=== PATIENT | female | born 1985 | race Caucasian/White ===

== ENCOUNTER 2016-10-09 11:01 | Emergency (ER) | payer OTHER ==
[~2016-10-09] VITALS: Ht 165.1 cm; Wt 63.0 kg
[~2016-10-09 11:01] MED LIST: WARF-18 PO
[2016-10-09 11:13] VITALS: BP 107/77
[2016-10-09] MEDS: diphenhydrAMINE 50 MG/ML VIAL IM ONE (14:14)
[2016-10-09] MEDS: HYDROmorphone 1 MG/ML AMP IM ONE (14:16)
[2016-10-09] MEDS: ONDANSETRON 4 MG ODT PO ONE (14:56)
[2016-10-09] MEDS: diphenhydrAMINE 50 MG/ML VIAL IVP ONE (16:13)
[2016-10-09] MEDS: HYDROmorphone 1 MG/ML AMP IVP ONE (16:14)
[2016-10-09 16:42] VITALS: BP 103/71
== END 2016-10-09 16:42 | disposition home or self-care (01) ==
LOC: MED 11:01
DX: S80.12XA Contusion of left lower leg, initial encounter (principal); M79.89 Other specified soft tissue disorders; R58 Hemorrhage, not elsewhere classified; J45.909 Unspecified asthma, uncomplicated; Z88.5 Allergy status to narcotic agent; Z88.6 Allergy status to analgesic agent; Z91.018 Allergy to other foods; Z86.718 Personal history of other venous thrombosis and embolism; W01.0XXA Fall on same level from slipping, tripping and stumbling without subsequent striking against object, initial encounter; Y93.89 Activity, other specified; Y92.89 Other specified places as the place of occurrence of the external cause; Y99.8 Other external cause status
CPT/HCPCS: 73590; 73630; 93971; 96372; 96374; 96375; 99284; J1170; J1200; Q0092; S0119

== ENCOUNTER 2018-06-09 16:59 | Inpatient (IN) | payer OTHER ==
[~2018-06-09] VITALS: Ht 170.2 cm; Wt 55.4 kg
[2018-06-09 17:21] VITALS: BP 114/45
--- NOTE | 2018-06-09 17:27 | NUR ---
Patient being evaluated by physician at bedside.
--- NOTE | 2018-06-09 17:30 | NUR ---
32 YO F BIB SELF W/ C/O GENERALIZED WEAKNESS, NAUSEA SINCE 299. PT REPORTS SEVERE EDEMA LEFT LEG, HAS HX 5 DVTS AND STATES THE ERYTHEMA/EDEMA/PAIN FEELS THE SAME THOSE EPISODES. PT CURRENTLY TAKES WARFARIN. PAIN 02/08. AMBULATORY W/ STEAFY GAIT. POSITIVE HOLMANS SIGN. DENIES SOB/CP AT THIS TIME. HX 5X DVT RX WARFARIN
--- NOTE | 2018-06-09 17:41 | NUR ---
lab at bedside
[2018-06-09] MEDS ORDERED: fentaNYL 0.05 MG/ML VIAL IVP ONE (17:45)
[2018-06-09] MEDS ORDERED: ONDANSETRON 4 MG/2 ML VIAL IVP ONE ×3 (17:45→21:55)
--- NOTE | 2018-06-09 18:02 | NUR ---
ultrasound at bedside
[2018-06-09 18:07] LABS: BASOPHILS # (AUTO) 0.1 K/uL (0.00-0.22); BASOPHILS % (AUTO) 2.1 % (0.0-2.0); EOSINOPHILS # (AUTO) 0.2 K/uL (0-0.4); EOSINOPHILS % (AUTO) 3.7 % (0.0-4.0); HEMATOCRIT 31.2 % (36-48); HEMOGLOBIN 9.2 g/dL (12.0-16.0); LYMPHOCYTES # (AUTO) 1.6 K/uL (2.5-16.5); LYMPHOCYTES % (AUTO) 31.1 % (20.5-51.1); MEAN CORPUSCULAR HEMOGLOBIN 21 pg (27-31); MEAN CORPUSCULAR HGB CONC 29 g/dL (33-37); MEAN CORPUSCULAR VOLUME 70.2 fL (80-94); MONOCYTES # (AUTO) 0.3 K/uL (0.8-1.0); MONOCYTES % (AUTO) 5.8 % (1.7-9.3); NEUTROPHILS # (AUTO) 2.9 K/uL (1.8-7.7); NEUTROPHILS % (AUTO) 57.3 % (42.2-75.2); PLATELET COUNT (AUTO) 231 K/uL (140-450); RED BLOOD CELL COUNT(AUTO) 4.44 MIL/uL (4.20-5.40)
[2018-06-09 18:21] LABS: PROTHROMBIN TIME 10.1 secs (10.8-13.4)
[2018-06-09 18:33] LABS: ANION GAP 11.1 (8-16); CARBON DIOXIDE 27.2 mmol/L (21-32); POTASSIUM 3.3 mmol/L (3.5-5.1)
[2018-06-09 18:35] LABS: ALBUMIN 3.7 g/dL (3.4-5.0); CREATININE 0.8 mg/dL (0.6-1.3); TOTAL BILIRUBIN 0.2 mg/dL (0.0-1.0)
--- NOTE | 2018-06-09 18:53 | NUR ---
PT IS A HARD STICK, NOT ABLE TO GET AN IV ON PT, ER MD AWARE AND NOTIFIED
--- NOTE | 2018-06-09 19:20 | NUR ---
RECEIVED REPORT FROM AM NURSE. PT LAYING IN BED, RR EVEN AND UNLABORED. VSS. PT C/O 10/10 LOWER ABD PAIN AND L LEG PAIN. PREVIOUS RN UNABLE TO START IV, PT AGREED TO HAVE DATA MINING ANALYST PM ATTEMPT.
[2018-06-09] MEDS ORDERED: NACL 0.9% 1,000 ML IV ONE (20:15)
--- NOTE | 2018-06-09 20:15 | NUR ---
Pt report given to AMY BOSCH. Transfer of care at this time.
[2018-06-09] MEDS ORDERED: diphenhydrAMINE 50 MG/ML VIAL IVP ONE ×2 (20:40→21:25)
[2018-06-09] MEDS ORDERED: HYDROmorphone PFS 2 MG/ML SYR IVP ONE (20:40)
[2018-06-09 21:03] LABS: APPEARANCE,URINE SLIGHTLY CLOUDY (CLEAR); COLOR,URINE YELLOW (YELLOW)
[2018-06-09 21:04] LABS: BILIRUBIN,URINE NEGATIVE (NEGATIVE); BLOOD, URINE 3+ (NEGATIVE); LEUKOCYTE ESTERASE ,URINE NEGATIVE (NEGATIVE); NITRITE, URINE NEGATIVE (NEGATIVE); UGLUCOSE NEGATIVE (NEGATIVE)
--- NOTE | 2018-06-09 21:04 | NUR ---
PT TO RADIOLOGY VIA [facility] BY [facility].
[2018-06-09 21:16] LABS: RBC,URINE TOO NUMEROUS TO COUN /HPF (0-5); WBC,URINE 0-5 (RARE) /HPF (0-5)
--- NOTE | 2018-06-09 22:44 | NUR ---
PT IN 03/10 ABD PAIN. ER MD MADE AWARE. WILL CONTINUE TO MONITOR.
[2018-06-09] MEDS ORDERED: KETAMINE 500 MG/5 ML VIAL IVP ONE (22:45)
[2018-06-09] MEDS ORDERED: KETAMINE 10 MG/ML UD SYR **ER IVP ONE (22:55)
[2018-06-09 22:59] LABS: FREE T4 (FREE THYROXINE) 1.06 ng/dL (0.76-1.46); THYROID STIMULATING HORMONE 0.83 uIU/mL (0.34-3.74)
[2018-06-09 23:52] LABS: BARBITURATE, URINE NEGATIVE ng/ml (NEG <=200); BENZODIAZEPINE, URINE NEGATIVE ng/mL (NEG <=200); CANNABINOID, URINE NEGATIVE ng/mL (NEG <=50); COCAINE, URINE NEGATIVE ng/mL (NEG <=300); OPIATE, URINE NEGATIVE ng/mL (NEG <=2000); PHENCYCLIDINE SCREEN,URINE NEGATIVE ng/mL (NEG <=25)
--- NOTE | 2018-06-09 23:59 | NUR ---
PT STATES THAT SHE FEELING BURNING IN HER PELVIS AND HIP AREA. ER MD MADE AWARE. WILL CONTINUE TO MONITOR.
[2018-06-10] MEDS: NACL 0.9% 1,000 ML IV SCH ×2 (00:14→10:24)
[2018-06-10] MEDS ORDERED: ZOLPIDEM 5 MG TAB PO PRN (00:15)
[2018-06-10] MEDS ORDERED: DOCUSATE SODIUM 100 MG GELCAP PO PRN (00:15)
[2018-06-10] MEDS ORDERED: MORPHINE SULFATE 4 MG/ML SYR IVP PRN (00:15)
[2018-06-10] MEDS ORDERED: ACETAMINOPHEN 325 MG TAB PO PRN (00:15)
[2018-06-10] MEDS ORDERED: LORazepam 2 MG/ML VIAL IM/IVP PRN (00:15)
[2018-06-10] MEDS ORDERED: ONDANSETRON 4 MG/2 ML VIAL IM/IVP PRN (00:15)
[2018-06-10] MEDS ORDERED: HYDROcodone/APAP 5/325 MG 1 TAB TAB PO PRN ×2 (00:15→11:40)
[2018-06-10] MEDS ORDERED: HYDROmorphone 1 MG/ML AMP IVP PRN (00:40)
--- NOTE | 2018-06-10 00:45 | NUR ---
US AT BEDSIDE.
--- NOTE | 2018-06-10 00:58 | NUR ---
Pt transferred to Med/Surg via 104A WITH AMY BOSCH .
[2018-06-10 01:05] VITALS: BP 104/65
--- NOTE | 2018-06-10 01:05 | NUR ---
Patient will be admitted to care of Dr. Steve. Admited to [facility]. Will go to room 104A. Belongings list completed. Report to Stephanie REYES.
--- NOTE | 2018-06-10 01:15 | NUR ---
PT BROUGHT UP TO FLOOR VIA GURNEY AND WAS TRANSFERRED TO ROOM 104A. PT ESCORTED BY VARINDER REYES HOT BLASTER ER NURSE. VARINDER GAVE REPORT AT BEDSIDE. PT A0X4 IN SABLE CONDITION AT THIS TIME. PT SKIN IN TAC. SHE HAS 2 IV SITES BOTH ON RIGHT SIDE 24G ON RIGHT WRIST AND 20G ON LAC. PT V/S FOLLOWS T 97.6 P 78 R 18 B/P 104/65 02 100% ON R/A. PT HAS NS RUNNING AT 100 VIA PUMP. PT C/O OF SEVERE PAIN AND NAUSEA. WILL MEDICATE PT PRN.
--- NOTE | 2018-06-10 01:54 | NUR ---
PT RECEIVED IVP ZOFRAN FOR NAUSEA AND DILAUDID IVP FOR SEVERE PAIN. DR. PARKINSON ADMITTING MD AT BEDSIDE INTERVIEWING AND EXAMINING PT AT BEDSIDE. PT REQUESTED A 4HR PRN TIME FRAME INSTEAD OF A 6HR. PRN IVP DILAUDID. DR. PARKINSON SAID OK. PT ALSO REQUEST BENADRYL FOR ITCHINESS DUE TO HER CONCERN FOR A MEDICATION REACTION. PT OFFERED AN AMBIEN TO HELP HER SLEEP BUT SHE DECLINED.
--- NOTE | 2018-06-10 02:15 | NUR ---
PT REQUEST [employer] DR. PARKINSON AWARE AND HAS GRANTED HER REQUEST.
[2018-06-10] MEDS ORDERED: diphenhydrAMINE 50 MG/ML VIAL IVP PRN (02:25)
[2018-06-10] MEDS ORDERED: POTASSIUM CHLORIDE 10 MEQ TABER PO SCH (02:45)
--- NOTE | 2018-06-10 03:04 | NUR ---
PT REQUEST BENADRYL FOR ITCHINESS. GIVEN ORDERED.
--- NOTE | 2018-06-10 05:30 | NUR ---
PT GIVEN 40 MEQ OF K-DUR FOR LOW POTASSIUM
[2018-06-10] MEDS: HYDROmorphone 1 MG/ML AMP IVP PRN ×2 (06:01→10:17)
--- NOTE | 2018-06-10 06:05 | NUR ---
PT C/O SEVERE PAIN AND GIVEN DILAUDID IVP ORDERD FOR SEVERE PAIN WILL MONITOR EFFECT.
[2018-06-10 06:17] LABS: BASOPHILS # (AUTO) 0.1 K/uL (0.00-0.22); BASOPHILS % (AUTO) 1.2 % (0.0-2.0); EOSINOPHILS # (AUTO) 0.1 K/uL (0-0.4); EOSINOPHILS % (AUTO) 1.1 % (0.0-4.0); HEMATOCRIT 27.7 % (36-48); HEMOGLOBIN 8.2 g/dL (12.0-16.0); LYMPHOCYTES # (AUTO) 1.7 K/uL (2.5-16.5); LYMPHOCYTES % (AUTO) 24.4 % (20.5-51.1); MEAN CORPUSCULAR HEMOGLOBIN 21 pg (27-31); MEAN CORPUSCULAR HGB CONC 30 g/dL (33-37); MEAN CORPUSCULAR VOLUME 70.3 fL (80-94); MONOCYTES # (AUTO) 0.3 K/uL (0.8-1.0); MONOCYTES % (AUTO) 4.7 % (1.7-9.3); NEUTROPHILS # (AUTO) 4.8 K/uL (1.8-7.7); NEUTROPHILS % (AUTO) 68.6 % (42.2-75.2); PLATELET COUNT (AUTO) 237 K/uL (140-450); RED BLOOD CELL COUNT(AUTO) 3.94 MIL/uL (4.20-5.40); RED CELL DISTRIBUTION WIDTH 21.9 % (11.6-13.7); WHITE BLOOD COUNT (AUTO) 6.9 K/uL (4.8-10.8)
--- NOTE | 2018-06-10 06:45 | NUR ---
PT SAYS SHE FEELS BETTER.
--- NOTE | 2018-06-10 07:27 | NUR ---
REPORT GIVEN TO ROSE MARIE REYES DAYSHIFT NURSE AT BEDSIDE FOR CONTINUITY OF CARE, PT IN STABLE CONDITION.
[2018-06-10] MEDS ORDERED: LACTULOSE 20 GM/30 ML UDC PO SCH (07:30)
[2018-06-10] MEDS: BISACODYL 10 MG SUPP RC SCH ×2 (07:30→08:41)
--- NOTE | 2018-06-10 07:30 | NUR ---
PATIENT WAS AWAKE, ALERT. RESPIRATION EVEN, UNLABOR ON ROOM AIR. SKIN DRY AND WARM. IV PATENT AND INTACT. COMPLAINED OF ABDOMINAL PAIN 7/10, SHARP, RADIATING TO THE BACK, WILL MEDICATE PER ORDER. PLAN OF CARE WAS DISCUSSED WITH PATIENT. BED AT LOW POSITION, SIDE RAILS UP. CALL LIGHT WITHIN REACH
[2018-06-10 08:00] VITALS: BP 98/51
--- NOTE | 2018-06-10 08:25 | NUR ---
PATIENT HAS BEEN SCREENED AND CATEGORIZED MODERATE NUTRITION RISK. PATIENT WILL BE SEEN WITHIN 3-5 DAYS OF ADMISSION. 06/12/18 06/14/[address]
[2018-06-10] MEDS ORDERED: POLYETHYLENE GLYCOL 17 GM/PKT PO SCH (09:00)
--- NOTE | 2018-06-10 10:20 | NUR ---
PATIENT WAS AWAKE, ALERT. RESPIRATION EVEN, UNLABOR ON ROOM AIR. COMPLAINED OF ABDOMINAL PAIN. MED WAS GIVEN PER ORDER
[2018-06-10] MEDS ORDERED: KETOROLAC 15 MG/ML VIAL IM PRN (11:40)
--- NOTE | 2018-06-10 12:00 | NUR ---
PATIENT WAS AWAKE, ALERT, SITTING IN BED COMFORTABLY. RESPIRATION EVEN, UNLABOR ON ROOM AIR. NO DISTRESS NOTED AT THIS TIME
[2018-06-10 12:55] LABS: ANION GAP 9.9 (8-16); CREATININE 0.7 mg/dL (0.6-1.3); POTASSIUM 3.9 mmol/L (3.5-5.1)
--- NOTE | 2018-06-10 13:40 | NUR ---
PATIENT COMPLAINED OF ABDOMINAL PAIN. EXPLAINED TO THE PATIENT DILAUDID WAS DISCONTINUED PER MD. OFFERED PATIENT NORCO AND TORADOL. PATIENT STATED SHE CANNOT TAKE ANYTHING PO, AND SHE IS ALLERGIC TO TORADOL. DR. MENDIETA WAS MADE AWARE.
--- NOTE | 2018-06-10 13:40 | NUR ---
CT ABDOMEN WITH CONTRAST WAS OBTAINED AT BEDSIDE, SIGNED BY PATIENT
--- NOTE | 2018-06-10 13:55 | NUR ---
PATIENT WAS EXPLAINED THAT SHE HAS CONSTIPATION PER MD AND NEED SUPPOSITORY. PATIENT REFUSED SUPPOSITORY, STATED THAT SHE DOES NOT HAVE CONSTIPATION, AND WOULD LIKE TO SPEAK TO "PATIENT RELATION". DR MENDIETA AND CHARGE NURSE NIKKO WAS MADE AWARE
[2018-06-10] MEDS ORDERED: SODIUM FERRIC GLUCONATE 125 MG in NACL 0.9% 100 ML IV SCH (14:00)
--- NOTE | 2018-06-10 15:00 | NUR ---
ENDORSEMENT GIVEN TO AMANDA REYES FOR CONTINUITY OF CARE. PATIENT IS STABLE AT THIS TIME
[2018-06-10 16:30] VITALS: BP 105/72
--- NOTE | 2018-06-10 16:30 | NUR ---
PATIENT WANTED TO LEAVE. DR MENDIETA SPOKE WITH THE PATIENT AND EXPLAINED THAT FURTHER WORK UP IS NEED. PATIENT STATES " I WILL NOT SIT HERE IN PAIN." DR OFFERED OTHER ALTERNATIVES BUT PATIENT REFUSED. IV LINE DISCONTINUED. PATIENT LEFT WITH ALL HER BELONGINGS. PATIENT LEFT WITHOUT SIGNING AMA FORM. PATIENT LEFT IN STABLE CONDITION
[2018-06-10] MEDS ORDERED: WARFARIN 2.5 MG TAB PO SCH (17:00)
[2018-06-10] MEDS ORDERED: FERROUS SULFATE 325 MG TABEC PO SCH (17:00)
[2018-06-10] MEDS ORDERED: ENOXAPARIN 60 MG/0.6 ML SYR SUBQ SCH (21:00)
[2018-06-11] MEDS ORDERED: ASCORBIC ACID 500 MG TAB PO SCH (09:00)
[2018-06-11 12:17] LABS: FOLIC ACID 10.8 ng/mL (>3.0)
== END 2018-06-10 16:30 | disposition left against medical advice (07) | DRG 812 ==
LOC: MED 16:59 → MTU 06-10 00:14
PROVIDERS: ADMIT General Practice; ATTEND General Practice
DX: D50.9 Iron deficiency anemia, unspecified (principal); D68.59 Other primary thrombophilia; R10.11 Right upper quadrant pain; E87.6 Hypokalemia; R31.9 Hematuria, unspecified; E87.8 Other disorders of electrolyte and fluid balance, not elsewhere classified; J45.909 Unspecified asthma, uncomplicated; Z53.21 Procedure and treatment not carried out due to patient leaving prior to being seen by health care provider; Z86.718 Personal history of other venous thrombosis and embolism; Z79.01 Long term (current) use of anticoagulants; Z88.6 Allergy status to analgesic agent; Z88.5 Allergy status to narcotic agent; Z90.49 Acquired absence of other specified parts of digestive tract; Z98.891 History of uterine scar from previous surgery; Z91.013 Allergy to seafood
CPT/HCPCS: 36415; 71045; 71275; 76856; 80048; 80053; 80305; 81001; 82150; 82390; 82607; 82728; 82746; 83036; 83540; 83690; 83735; 83880; 84100; 84439; 84443; 84484; 85025; 85045; 85610; 87081; 87804; 93005; 93971; 96361; 96374; 96375; 99285; J1170; J1200; J2405; J2916; J3010; J7030; Q0092; Q9967

== ENCOUNTER 2019-12-22 01:34 | Emergency (ER) | payer OTHER ==
[~2019-12-22] VITALS: Ht 162.6 cm; Wt 59.4 kg
[~2019-12-22 01:34] MED LIST changes: -WARF-18 PO; +WARF-246 PO
[2019-12-22 01:39] VITALS: BP 99/71
--- NOTE | 2019-12-22 01:43 | NUR ---
PT AMBULATED TO BED #12
--- NOTE | 2019-12-22 01:48 | NUR ---
RECEIVED A 34/F FROM TRIAGE WITH A C/O RIGHT BREAST PAIN INCREASING OVER THE LAST DAY. PT REPORTS THAT BREAST IS WARM TO TOUCH BUT DENIES ANY DISCHARGE OR DRAINAGE. PT ALSO DENIES REDNESS TO SITE. MD AT BEDSIDE FOR MSE AT THIS TIME.
[2019-12-22] MEDS ORDERED: MORPHINE SULFATE 4 MG/ML SYR IVP ONE (01:55)
[2019-12-22] MEDS ORDERED: diphenhydrAMINE 50 MG/ML VIAL IVP ONE ×2 (01:55→02:30)
--- NOTE | 2019-12-22 02:18 | NUR ---
MEDICATED ORDERED. WILL CONTINUE TO ASSESS.
--- NOTE | 2019-12-22 02:25 | NUR ---
PT C/O REDNESS AND IRRITATION AFTER MORPHINE ADMIN. DR AHUMADA AWARE. 25 MG BENEDRYL ORDERED. WILL MEDICATE ORDERED.
--- NOTE | 2019-12-22 02:45 | NUR ---
REDNESS/IRRITATION RELIEVED AFTER 2ND BENEDRYL ADMINISTRATION. PT STATES RELIEF OF PAIN AND FEELS COMFORTABLE FOR D/C.
--- NOTE | 2019-12-22 02:48 | NUR ---
IV removed, catheter intact and site benign. Applied folded 4x4 gauze and tape to stop bleeding.
[2019-12-22 02:51] VITALS: BP 99/71
== END 2019-12-22 02:51 | disposition home or self-care (01) ==
LOC: MED 01:34
DX: N64.4 Mastodynia (principal); Z88.6 Allergy status to analgesic agent; Z88.5 Allergy status to narcotic agent; Z88.8 Allergy status to other drugs, medicaments and biological substances; Z91.018 Allergy to other foods; Z79.899 Other long term (current) drug therapy
CPT/HCPCS: 81002; 81025; 96374; 96375; 99284; J1200; J2270

== ENCOUNTER 2020-06-30 15:11 | Emergency (ER) | payer OTHER ==
[~2020-06-30] VITALS: Ht 162.6 cm; Wt 78.9 kg
[~2020-06-30 15:11] MED LIST changes: -WARF-246 PO; +WARF-83 PO
[2020-06-30 15:16] VITALS: BP 130/72
--- NOTE | 2020-06-30 15:44 | NUR ---
34 Y/O FEMALE C/O PELVIC/ABDOMINAL CRAMPING, PATIENT STATES SHE HAD AN ULTRASOUND AND HER IUD IS NOT IN THE CORRECT POSITION. SHE WAS TOLD TO COME TO ER D/T INCREASE IN PAIN. PAIN IS 10/10 AND CENTERED IN ABDOMINAL AREA. PATIENT STATES SHE IS HAVING MILD VAGINAL BLEEDING AT THIS TIME. DENIES ANY WEAKNESS OR DIZZINESS.
[2020-06-30] MEDS ORDERED: ONDANSETRON 4 MG/2 ML VIAL ONE (15:51)
[2020-06-30] MEDS: ACETAMINOPHEN EXTRA STRENGTH 500 MG TAB PO ONE (16:12)
[2020-06-30] MEDS: ONDANSETRON 4 MG/2 ML VIAL IVP ONE (16:37)
[2020-06-30 16:43] LABS: BASOPHILS # (AUTO) 0.1 K/uL (0.00-0.22); BASOPHILS % (AUTO) 1.1 % (0.0-2.0); EOSINOPHILS # (AUTO) 0.1 K/uL (0-0.4); EOSINOPHILS % (AUTO) 1.6 % (0.0-4.0); HEMATOCRIT 34.1 % (36-48); HEMOGLOBIN 10.8 g/dL (12.0-16.0); LYMPHOCYTES # (AUTO) 1.6 K/uL (2.5-16.5); LYMPHOCYTES % (AUTO) 25.8 % (20.5-51.1); MEAN CORPUSCULAR HEMOGLOBIN 24 pg (27-31); MEAN CORPUSCULAR HGB CONC 32 g/dL (33-37); MEAN CORPUSCULAR VOLUME 77.3 fL (80-94); MONOCYTES # (AUTO) 0.4 K/uL (0.8-1.0); MONOCYTES % (AUTO) 6.2 % (1.7-9.3); NEUTROPHILS % (AUTO) 65.3 % (42.2-75.2); PLATELET COUNT (AUTO) 276 K/uL (140-450); RED BLOOD CELL COUNT(AUTO) 4.41 MIL/uL (4.20-5.40); RED CELL DISTRIBUTION WIDTH 17.4 % (11.6-13.7); WHITE BLOOD COUNT (AUTO) 6.1 K/uL (4.8-10.8)
--- NOTE | 2020-06-30 16:48 | NUR ---
PATIENT REFUSING ULTRASOUND AT THIS TIME D/T PAIN
[2020-06-30 16:57] LABS: ANION GAP 10.3 (8-16); CARBON DIOXIDE 26.7 mmol/L (21-32); CREATININE 0.9 mg/dL (0.6-1.3); TOTAL BILIRUBIN 0.4 mg/dL (0.0-1.0)
[2020-06-30] MEDS: diphenhydrAMINE 50 MG/ML VIAL IVP ONE (17:02)
[2020-06-30] MEDS: MORPHINE SULFATE 4 MG/ML SYR IVP ONE (17:02)
[2020-06-30] MEDS ORDERED: methylPREDNISolone SS 125 MG in WATER STERILE 2 ML IV ONE (17:40)
--- NOTE | 2020-06-30 17:46 | NUR ---
PT TAKEN TO CT VIA WHEELCHAIR
--- NOTE | 2020-06-30 17:46 | NUR ---
PATIENT STATES THAT PAIN IS DECREASED, 3/10. VSS. ALL NEEDS MET AT THIS TIME
[2020-06-30 18:50] VITALS: BP 129/69
--- NOTE | 2020-06-30 18:50 | NUR ---
Patient discharged with v/s stable. Written and verbal after care instructions given and explained. Patient verbalized understanding. Ambulatory with steady gait. All questions addressed prior to discharge. Advised to follow up with PMD.
== END 2020-06-30 18:50 | disposition home or self-care (01) ==
LOC: MED 15:11
DX: R10.2 Pelvic and perineal pain (principal); Z88.5 Allergy status to narcotic agent; Z91.013 Allergy to seafood; Z88.6 Allergy status to analgesic agent; Z88.8 Allergy status to other drugs, medicaments and biological substances; Z98.890 Other specified postprocedural states
CPT/HCPCS: 36415; 74177; 76856; 80053; 81002; 81025; 85025; 96374; 96375; 99285; J1200; J2270; J2405; Q0163; Q9967

== ENCOUNTER 2020-09-13 13:01 | Emergency (ER) | payer OTHER ==
[~2020-09-13] VITALS: Ht 172.7 cm; Wt 86.2 kg
[2020-09-13 13:04] VITALS: BP 120/79
[2020-09-13] MEDS ORDERED: MORPHINE SULFATE 4 MG/ML SYR IVP ONE (14:30)
[2020-09-13] MEDS ORDERED: NACL 0.9% 1,000 ML IV SCH (14:30)
[2020-09-13] MEDS ORDERED: diphenhydrAMINE 50 MG/ML VIAL IVP ONE ×2 (14:30→16:05)
[2020-09-13 15:13] LABS: BASOPHILS # (AUTO) 0.1 K/uL (0.00-0.22); BASOPHILS % (AUTO) 1.2 % (0.0-2.0); EOSINOPHILS # (AUTO) 0.1 K/uL (0-0.4); EOSINOPHILS % (AUTO) 1.4 % (0.0-4.0); HEMATOCRIT 34.5 % (36-48); HEMOGLOBIN 10.8 g/dL (12.0-16.0); LYMPHOCYTES # (AUTO) 1.3 K/uL (2.5-16.5); LYMPHOCYTES % (AUTO) 26.6 % (20.5-51.1); MEAN CORPUSCULAR HEMOGLOBIN 23 pg (27-31); MEAN CORPUSCULAR HGB CONC 31 g/dL (33-37); MEAN CORPUSCULAR VOLUME 73.8 fL (80-94); MONOCYTES # (AUTO) 0.3 K/uL (0.8-1.0); NEUTROPHILS # (AUTO) 3.1 K/uL (1.8-7.7); NEUTROPHILS % (AUTO) 63.8 % (42.2-75.2); PLATELET COUNT (AUTO) 272 K/uL (140-450); RED BLOOD CELL COUNT(AUTO) 4.67 MIL/uL (4.20-5.40); RED CELL DISTRIBUTION WIDTH 17.5 % (11.6-13.7); WHITE BLOOD COUNT (AUTO) 4.9 K/uL (4.8-10.8)
[2020-09-13 15:38] LABS: ALBUMIN 4.1 g/dL (3.4-5.0); ANION GAP 12.5 (8-16); CARBON DIOXIDE 23.4 mmol/L (21-32); CREATININE 0.9 mg/dL (0.6-1.3); POTASSIUM 3.9 mmol/L (3.5-5.1); TOTAL BILIRUBIN 0.6 mg/dL (0.0-1.0)
[2020-09-13] MEDS ORDERED: CYCLOBENZAPRINE 10 MG TAB PO ONE (15:40)
[2020-09-13] MEDS ORDERED: MORPHINE SULFATE 2 MG/ML SYR IVP ONE (16:50)
[2020-09-13] MEDS ORDERED: CYCL-654 PO (18:34)
[2020-09-13 18:52] VITALS: BP 104/56
== END 2020-09-13 18:52 | disposition home or self-care (01) ==
LOC: MED 13:01
DX: R10.31 Right lower quadrant pain (principal); R11.0 Nausea; R10.2 Pelvic and perineal pain; Z88.8 Allergy status to other drugs, medicaments and biological substances; Z88.6 Allergy status to analgesic agent; Z88.5 Allergy status to narcotic agent; Z91.018 Allergy to other foods
CPT/HCPCS: 36415; 74176; 76856; 80053; 81002; 81025; 83690; 85025; 85610; 93971; 93976; 96374; 96375; 96376; 99285; J1200; J2270; J7030

== ENCOUNTER 2021-05-04 19:10 | Emergency (ER) | payer OTHER ==
[~2021-05-04] VITALS: Ht 162.6 cm; Wt 87.5 kg
[~2021-05-04 19:10] MED LIST changes: +LOV40I SUBQ
[2021-05-04 19:12] VITALS: BP 146/88
--- NOTE | 2021-05-04 19:17 | NUR ---
PT AMBULATED TO BED #3
--- NOTE | 2021-05-04 19:20 | NUR ---
35 YO F BIB SELF WITH C/C OF 10/10 L LEG, R ARM , AND BACK PAIN S/P FALL X YESTERDAY. PT STATES SHE WAS HELPING A FRIEND WHEN THEY BOTH FELL, FRIEND FELL ON PT. LEFT LEG FEELS TIGHT PER PT AND IS SWOLLEN, NO REDNESS. PT HAS A HX OF DVTs. R ARM DOES NOT APPEAR SWOLLEN, NO REDNESS, DENIES TIGHTNESS, STATES SHE MAY HAVE A DVT. DENIES TAKING MEDICATION FOR PAIN. PT PLACED IN GOWN. BED LOCKED IN LOWEST POSITION, SIDE RAILS X2. ALL NEEDS MET AT THIS TIME. HX:DVTS RX:WARFARIN ALLERGIES:FENTANYL, ACETAMINOPHEN, NORCO, AND NSAIDS
[2021-05-04] MEDS ORDERED: diphenhydrAMINE 50 MG/ML VIAL IVP ONE (19:50)
[2021-05-04] MEDS ORDERED: MORPHINE SULFATE 4 MG/ML SYR IVP ONE (19:50)
--- NOTE | 2021-05-04 19:54 | NUR ---
rad at bedside.
--- NOTE | 2021-05-04 20:34 | NUR ---
unable to to start iv on foot,another nurse tried as well. ermd made aware. stated he will try next. pt refused to have medication IM, stated she wants iv meds and will not go CT without being medicated.
--- NOTE | 2021-05-04 22:23 | NUR ---
VERBAL ORDER FROM ALEXA CARUSO TO GIVE IV MEDS IM.
--- NOTE | 2021-05-04 22:48 | NUR ---
ULTRASOUND AT BEDSIDE
--- NOTE | 2021-05-04 23:34 | NUR ---
ULTRASOUND AT BEDSIDE AGAIN.
[2021-05-04] MEDS ORDERED: KETOROLAC 60 MG/2 ML VIAL IM ONE (23:45)
[2021-05-04] MEDS ORDERED: MORPHINE SULFATE 4 MG/ML SYR ONE (23:54)
[2021-05-05] MEDS ORDERED: MORPHINE SULFATE 4 MG/ML SYR IM ONE
[2021-05-05 00:13] VITALS: BP 115/63
== END 2021-05-05 00:13 | disposition home or self-care (01) ==
LOC: MED 19:10
DX: S09.90XA Unspecified injury of head, initial encounter (principal); M25.562 Pain in left knee; M79.601 Pain in right arm; J45.909 Unspecified asthma, uncomplicated; Z79.01 Long term (current) use of anticoagulants; Z79.899 Other long term (current) drug therapy; Z88.5 Allergy status to narcotic agent; Z88.6 Allergy status to analgesic agent; Z88.8 Allergy status to other drugs, medicaments and biological substances; Z91.018 Allergy to other foods; W10.9XXA Fall (on) (from) unspecified stairs and steps, initial encounter; Y93.89 Activity, other specified; Y92.89 Other specified places as the place of occurrence of the external cause; Y99.8 Other external cause status
CPT/HCPCS: 70450; 73060; 73080; 73090; 73562; 81025; 93971; 96372; 99285; J1200; J2270; Q0092; J1885

== ENCOUNTER 2021-05-05 12:32 | Emergency (ER) | payer OTHER ==
[~2021-05-05] VITALS: Ht 162.6 cm; Wt 88.0 kg
[2021-05-05 12:41] VITALS: BP 116/73
--- NOTE | 2021-05-05 12:45 | NUR ---
PT AMBULATED TO BED 03.
--- NOTE | 2021-05-05 12:50 | NUR ---
DR. CEJA RE-EVALUATING PATIENT AT BEDSIDE
[2021-05-05] MEDS ORDERED: diphenhydrAMINE 50 MG/ML VIAL IVP ONE ×2 (13:15→14:00)
[2021-05-05] MEDS ORDERED: MORPHINE SULFATE 5 MG/ML VIAL IVP ONE (13:15)
--- NOTE | 2021-05-05 13:50 | NUR ---
35 Y/O F BIB SELF FROM HOME C /O RIGHT ARM AND LEFT LEG PAIN X 1 DAY. 02/08, SHARP. PT REPORTS SHE HAD A FALL 2 DAYS AGO. TOOK TYLENOL 2 HOURS AGO WHICH PROVIDED NO RELIEF. IN ED, VSS. PT'S EXTREMITIES COOL TO TOUCH, CR <3 SECS. PT POSITIONED COMFORTABLY IN BED WITH 2 SIDERAILS UP. PROVIDED WITH WARM BLANKET. ERMD MADE AWARE OF PT STATUS. PMH: DVT ALLERGY: SEE LIST MED: WARFARIN, TYLENOL
[2021-05-05] MEDS ORDERED: FAMOTIDINE 20 MG/2 ML VIAL IVP ONE (14:00)
[2021-05-05] MEDS ORDERED: NACL 0.9% 1,000 ML IV ONE (14:10)
[2021-05-05 14:21] LABS: PROTHROMBIN TIME 17.1 secs (10.8-13.4)
[2021-05-05] MEDS ORDERED: MORPHINE SULFATE 4 MG/ML SYR IVP ONE (14:45)
--- NOTE | 2021-05-05 14:51 | NUR ---
PT PLACED IN RIGHT SHOULDER SLING.
[2021-05-05 15:33] VITALS: BP 108/65
--- NOTE | 2021-05-05 15:33 | NUR ---
The patient's care was reviewed and supervised by Varsha Keane RN.
--- NOTE | 2021-05-05 15:33 | NUR ---
Patient discharged with v/s stable. Written and verbal after care instructions ABOUT MUSCLE PAIN AND FALL PREVENTION IN HOSPITALS given. Patient verbalized understanding. Ambulatory with steady gait. All questions addressed prior to discharge. Advised to follow up with PMD.
== END 2021-05-05 15:33 | disposition home or self-care (01) ==
LOC: MED 12:32
DX: S46.911A Strain of unspecified muscle, fascia and tendon at shoulder and upper arm level, right arm, initial encounter (principal); J45.909 Unspecified asthma, uncomplicated; Z86.718 Personal history of other venous thrombosis and embolism; Z88.5 Allergy status to narcotic agent; Z88.6 Allergy status to analgesic agent; Z91.018 Allergy to other foods; Z88.8 Allergy status to other drugs, medicaments and biological substances; Z79.899 Other long term (current) drug therapy; W10.9XXA Fall (on) (from) unspecified stairs and steps, initial encounter; Y93.89 Activity, other specified; Y92.89 Other specified places as the place of occurrence of the external cause; Y99.8 Other external cause status
CPT/HCPCS: 36415; 36569; 85610; 93971; 96361; 96374; 96375; 96376; 99285; J1200; J2270; J3490; J7030; Q0092

== ENCOUNTER 2021-06-17 18:06 | Emergency (ER) | payer OTHER ==
[~2021-06-17] VITALS: Ht 162.6 cm; Wt 85.3 kg
[2021-06-17 18:18] VITALS: BP 115/68
[2021-06-17] MEDS ORDERED: METOCLOPRAMIDE 10 MG TAB PO ONE (22:05)
[2021-06-17 23:31] LABS: APPEARANCE,URINE HAZY (CLEAR); BILIRUBIN,URINE NEGATIVE (NEGATIVE); BLOOD, URINE 3+ (NEGATIVE); COLOR,URINE RED (YELLOW); LEUKOCYTE ESTERASE ,URINE TRACE (NEGATIVE); NITRITE, URINE POSITIVE (NEGATIVE); PH,URINE 5.5 (5.0-9.0); UGLUCOSE NEGATIVE (NEGATIVE)
[2021-06-17 23:45] LABS: RBC,URINE TOO NUMEROUS TO COUN /HPF (0-5); WBC,URINE 0-5 /HPF (0-5)
--- NOTE | 2021-06-17 23:57 | NUR ---
[facility] OFFICER ATTEMPTED x3 TO GET BLOOD DRAW AND UNSUCCESSFUL. THIS [place] ATTEMPTED x2 U[address] DR[address] DAN MADE AWARE.
== END 2021-06-18 01:01 | disposition left against medical advice (07) ==
LOC: MED 18:06
DX: R07.9 Chest pain, unspecified (principal); Z20.822 Contact with and (suspected) exposure to COVID-19; R10.9 Unspecified abdominal pain; R51.9 Headache, unspecified; M79.10 Myalgia, unspecified site; B34.9 Viral infection, unspecified; D64.9 Anemia, unspecified; J45.909 Unspecified asthma, uncomplicated; Z90.49 Acquired absence of other specified parts of digestive tract; Z86.718 Personal history of other venous thrombosis and embolism; Z79.01 Long term (current) use of anticoagulants; Z79.899 Other long term (current) drug therapy; Z88.6 Allergy status to analgesic agent; Z88.8 Allergy status to other drugs, medicaments and biological substances; Z91.018 Allergy to other foods
CPT/HCPCS: 71045; 81001; 87086; 87426; 93005; 99285; J8597; Q0163

== ENCOUNTER 2021-10-16 20:50 | Emergency (ER) | payer OTHER ==
[~2021-10-16] VITALS: Ht 162.6 cm; Wt 90.7 kg
[2021-10-16 21:10] VITALS: BP 101/75
[2021-10-16] MEDS ORDERED: NACL 0.9% 1,000 ML IV ONE (21:25)
[2021-10-16 22:05] LABS: BASOPHILS # (AUTO) 0.1 K/uL (0.00-0.22); BASOPHILS % (AUTO) 0.8 % (0.0-2.0); EOSINOPHILS # (AUTO) 0.2 K/uL (0-0.4); EOSINOPHILS % (AUTO) 2.1 % (0.0-4.0); HEMATOCRIT 34.9 % (36-48); HEMOGLOBIN 10.2 g/dL (12.0-16.0); LYMPHOCYTES # (AUTO) 1.9 K/uL (2.5-16.5); LYMPHOCYTES % (AUTO) 23.7 % (20.5-51.1); MEAN CORPUSCULAR HEMOGLOBIN 20 pg (27-31); MEAN CORPUSCULAR HGB CONC 29 g/dL (33-37); MEAN CORPUSCULAR VOLUME 66.7 fL (80-94); MONOCYTES # (AUTO) 0.5 K/uL (0.8-1.0); MONOCYTES % (AUTO) 6.6 % (1.7-9.3); NEUTROPHILS # (AUTO) 5.5 K/uL (1.8-7.7); NEUTROPHILS % (AUTO) 66.8 % (42.2-75.2); PLATELET COUNT (AUTO) 348 K/uL (140-450); RED BLOOD CELL COUNT(AUTO) 5.23 MIL/uL (4.20-5.40); RED CELL DISTRIBUTION WIDTH 20.2 % (11.6-13.7); WHITE BLOOD COUNT (AUTO) 8.2 K/uL (4.8-10.8)
[2021-10-16 22:11] LABS: CARBON DIOXIDE 20.5 mmol/L (21-32); POTASSIUM 3.5 mmol/L (3.5-5.1)
--- NOTE | 2021-10-16 22:25 | NUR ---
PATIENT PRESENTS TO ED WITH PRESSURE AND LEG PAIN HEAD PAIN 02/08. THIGH PAIN 12/08. PT STATES SHE FEELS HOT. PT STATES SHE WOKE UP AND STARTED TO FEEL DIZZY. 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 PT STATES SHE WENT TO DR AND THEY PRESRIBED A WEIGHT LOSS MED. PT STATES THATS WHEN SYMPTOMS STARTED AFTERE SHE TOOK THE PHENTERMINE LUNGS CLEAR BL; HR EVEN AND REGULAR; PT DENIES ANY FEVER, CP, SOB, OR COUGH AT THIS TIME;VSS; PATIENT POSITIONED FOR COMFORT; HOB ELEVATED; BEDRAILS UP X2; BED DOWN. ER MD MADE AWARE OF PT STATUS. PMH: DVT RX: COUMADIN
--- NOTE | 2021-10-16 22:33 | NUR ---
2200- LAB AT BEDSIDE TRYING TO COLLECT BLOOD. PT MOVING AND STATIMG SHES A " HARD STICK" PT CLAIMS IV CAN ONLY BE PUT IN WITH ULTRASOUND. LAB ONLY TO COLLECT 1 VIAL
--- NOTE | 2021-10-16 23:32 | NUR ---
CALLED XRAY FOR PT PT WOULDNT GO WITHOUT BENADRYL
[2021-10-16] MEDS ORDERED: LORazepam 1 MG TAB PO ONE (23:40)
--- NOTE | 2021-10-17 00:18 | NUR ---
PT STATING THAT SHE IS HOT. STATES SHE IS HAVING SCRATCHY SKIN SURE TO THE ATIVAN . DR NOTIFIED
--- NOTE | 2021-10-17 01:03 | NUR ---
PT STATING SHE IS FEELING DIZZY AND CALLIE DOT BREATH. 02 MONITOR PUT ON. 100% OXYGEN LEVEL ON ROOM AIR
--- NOTE | 2021-10-17 02:00 | NUR ---
PT NOT LETTING US TAKE HER CT. THEREFORE DR WROTE DC INSTRUCTIONS. PT UNHAPPY ABOUT DISCAHRGE STATES SHE WONT SIGN DC PAPER. PT CUSSING AND CALLING NURSES "b) AND STUPID (FU'S) PT TOLD US THAT SHE IS GOING TO [facility] AND BECOMING VERBALLY ABUSIVE, NOTIFIED .
--- NOTE | 2021-10-17 02:10 | NUR ---
0130- PT CLAIMS SHE IS HAVING ALLERGIC REACTION AND SHE CANT SEE OUT OF LEFT EYE. PT HOOKED ONTO MONITOR AND BP STAYING AROUND 108/73. HR 71. 99% O2. ALL VSS STABLE . TRYING TO GET CT FOR PATIENT BUT PATIENT REFUSING IF SHE DOESNT GET MORE BENADRYL. PT WAS ALREADY GIVEN BENADRYL. PT WAS MADE AWARE THAT CT WOULD BE WITHOUT CONTRAST 0200- PT WAS OFFERED TO GO TO CT AGAIN. BUT SHE STATES SHE IS DIZZY AND CANNOT TAKE ANYTHING BY MOUTH . DR FAULKNER TALKING TO PATIENT . HE STATES BENARDYL WAS GIVEN AND WE NEED A CT TO DETERMINE FURTHER DIAGNOSTIC
[2021-10-17 02:12] VITALS: BP 105/67
--- NOTE | 2021-10-17 02:12 | NUR ---
The patient's care was reviewed and supervised by Lauren Ortiz RN.
--- NOTE | 2021-10-17 02:12 | NUR ---
Patient discharged with v/s stable. Written and verbal after care instructions given and explained. PATIENT DC WITHOUT SIGNING HER PAPERWORK .PT WAS UPSET WITH HER DISCHAGE. SHE WANTED TO STAY BUT WOULD NOT TAKE CT. Ambulatory with steady gait. All questions addressed prior to discharge. ID band removed. Patient advised to follow up with PMD. Opportunity to ask questions provided and answered.
== END 2021-10-17 02:12 | disposition home or self-care (01) ==
LOC: MED 20:50
DX: G43.909 Migraine, unspecified, not intractable, without status migrainosus (principal); R09.81 Nasal congestion; J06.9 Acute upper respiratory infection, unspecified
CPT/HCPCS: 36415; 80048; 85025; 99285; Q0163